=== PATIENT | male | born 1995 | race Caucasian/White ===

== ENCOUNTER 2019-01-28 21:00 | Emergency (ER) | payer SELFPAY ==
--- NOTE | 2019-01-29 00:53 | ER Document Report ---
ED General - General Chief Complaint: Cold Symptoms Stated Complaint: COUGH,SORE THROAT Time Seen by Provider: 01/29/19 00:44 Mode of Arrival: Ambulatory Information source: Patient TRAVEL OUTSIDE OF THE [place] IN LAST 30 DAYS: No - HPI Patient complains to provider of: Productive cough, sore throat Onset: Other - 2 days ago Onset/Duration: Sudden Quality of pain: Sharp Severity: Mild Pain Level: 2 Associated symptoms: denies: Chills, Diarrhea, Fever, Nausea, Vomiting Exacerbated by: Denies Relieved by: Denies Similar symptoms previously: No Recently seen / treated by doctor: No Notes: 23-year-old male coming in today with bad cough, sore throat, producing green-yellow sputum. Afebrile. No nausea vomiting or diarrhea. Past Medical History - General Information source: Patient - Social History Smoking Status: Former Smoker Family History: Reviewed & Not Pertinent Review of Systems - Review of Systems Notes: Constitutional: No fevers. No chills. EENT: No eye redness. No eye pain. No ear pain. No sore throat. Cardiovascular: No chest pain. No palpitations. Respiratory: Positive cough and chest congestion. Positive sputum production Gastrointestinal: No abdominal pain. No nausea, vomiting, or diarrhea. Genitourinary: Atraumatic. No lesions. No pain. No discharge. Musculoskeletal: Atraumatic. No swelling. No deformities. Skin: No rash or lesions. Lymphatic: No swollen lymph nodes. Neurologic: No headache. No syncope. Psychiatric: No suicidal or homicidal ideation. Physical Exam - Vital signs Vitals: Temp Pulse Resp BP Pulse Ox 98.2 F 98 20 131/68 H 98 01/28/19 21:10 01/28/19 21:10 01/28/19 21:10 01/28/19 21:10 01/28/19 21:10 - Notes Notes: General: Well-developed, well-nourished. In no acute distress. Non-toxic appearing. Cardiac: Well-perfused. Regular rate and rhythm. No murmurs, rubs, or gallops. Pulmonary: No respiratory distress. No cyanosis. Bilateral lung fiels are clear to auscultation. Abdominal: Non-distended. Non-rigid. Bowels sounds are present in all four quadrants. No guarding or rebound. HEENT: Head is atraumatic. Conjunctivae not reddened. No tearing. PERRL. EOMI. Orbits atraumatic. No periorbital swelling or erythema. Oropharynx is without erythema, swelling, or exudates. Neck: Supple. No adenopathy. No meningismus. Dermatologic: Warm with good turgor. No rash. Atraumatic. Chest: Atraumatic. No chest wall tenderness to palpation. Musculoskeletal: Moves all extremities well. No range of motion deficits. no muscular or joint tenderness. No paraspinal muscle tenderness. no midline spinal tenderness or step-off. Genitourinary: Examination deferred Neurologic: No gross neurologic deficits. Psychiatric: Normal mood. Course - Vital Signs Vital signs: Temp Pulse Resp BP Pulse Ox 98.2 F 98 20 131/68 H 98 01/28/19 21:10 01/28/19 21:10 01/28/19 21:10 01/28/19 21:10 01/28/19 21:10 Discharge - Discharge Clinical Impression: Upper respiratory infection Qualifiers: URI type: unspecified URI Qualified Code(s): J06.9 - Acute upper respiratory infection, unspecified Condition: Good Disposition: HOME, SELF-CARE Instructions: Upper Respiratory Illness ([facility]) Prescriptions: Benzonatate [Tessalon Perles 100 mg Capsule] 100 mg PO Q8HP PRN #15 capsule PRN Reason: Azithromycin [Zithromax 250 mg Tablet] 250 mg PO ASDIR PRN #6 tablet PRN Reason: Referrals: [facility] [Provider Group] - Follow up as needed
[2019-01-29 00:58] VITALS: BP 140/80
== END 2019-01-29 00:57 | disposition home or self-care (01) ==
LOC: ER 21:00
DX: J06.9 Acute upper respiratory infection, unspecified (principal); R05 Cough; J02.9 Acute pharyngitis, unspecified; R09.89 Other specified symptoms and signs involving the circulatory and respiratory systems; Z87.891 Personal history of nicotine dependence
CPT/HCPCS: 99282

== ENCOUNTER 2019-07-07 15:17 | Emergency (ER) | payer SELFPAY ==
[2019-07-07] MEDS ORDERED: MAG HYDROX/AL HYDROX/SIMETH SUSP 30 ML UDCUP PO ONE (15:32)
[2019-07-07] MEDS ORDERED: LIDOCAINE 2% VISCOUS SOLN 20 ML UDCUP PO ONE (15:32)
--- NOTE | 2019-07-07 15:33 | ER Document Report ---
ED Medical Screen (RME) - General Stated Complaint: STOMACH PAIN Time Seen by Provider: 07/07/19 15:31 Mode of Arrival: Ambulatory Information source: Patient Notes: Patient presents complaining of feeling as though he has discomfort whenever he eats something. Patient states he feels as though food gets caught up at the base of his esophagus and then goes down. Patient denies any cough or difficulty breathing. Patient denies any nausea or vomiting. Patient reports mild discomfort to the epigastric area. I have greeted and performed a rapid initial assessment of this patient. A comprehensive ED assessment and evaluation of the patient, analysis of test results and completion of the medical decision making process will be conducted by additional ED providers. TRAVEL OUTSIDE OF THE [place] IN LAST 30 DAYS: No - Related Data Allergies/Adverse Reactions: No Known Allergies Allergy (Verified 07/07/19 15:30) Past Medical History - Social History Chew tobacco use (# tins/day): No Drug Abuse: None Renal/ Medical History: Denies: Hx Peritoneal Dialysis Physical Exam - Vital signs Vitals: Temp Pulse Resp BP Pulse Ox 98.9 F 101 H 16 144/79 H 97 07/07/19 15:22 07/07/19 15:22 07/07/19 15:22 07/07/19 15:22 07/07/19 15:22 - Abdominal Tenderness: Tender - "Discomfort" in the epigastric area Course - Vital Signs Vital signs: Temp Pulse Resp BP Pulse Ox 98.9 F 101 H 16 144/79 H 97 07/07/19 15:22 07/07/19 15:22 07/07/19 15:22 07/07/19 15:22 07/07/19 15:22
[2019-07-07 16:10] LABS: ABSOLUTE EOSINOPHILS # (AUTO) 0.1 10^3/uL (0.0-0.6); ABSOLUTE LYMPHOCYTES (AUTO) 1.6 10^3/uL (0.5-4.7); ABSOLUTE MONOCYTES (AUTO) 0.8 10^3/uL (0.1-1.4); ABSOLUTE NEUT (AUTO) 7.8 10^3/uL (1.7-8.2); BASOPHILS % (AUTO) 0.4 % (0-2); EOSINOPHILS % (AUTO) 0.9 % (0-6); HEMATOCRIT 45.9 % (37.9-51.0); HEMOGLOBIN 15.5 g/dL (13.5-17.0); LYMPHOCYTES % (AUTO) 15.6 % (13-45); MEAN CORPUSCULAR HEMOGLOBIN 27.8 pg (27.0-33.4); MEAN CORPUSCULAR HGB CONC 33.8 g/dL (32.0-36.0); MEAN CORPUSCULAR VOLUME 82 fl (80-97); MONOCYTES % (AUTO) 7.5 % (3-13); PLATELET COUNT 260 10^3/uL (150-450); RED BLOOD COUNT 5.58 10^6/uL (4.35-5.55); RED CELL DISTRIBUTION WIDTH 12.8 % (11.5-14.0); SEGMENTED NEUTROPHILS % (AUTO) 75.6 % (42-78); TOTAL CELLS COUNTED % (AUTO) 100 %; WHITE BLOOD COUNT 10.3 10^3/uL (4.0-10.5)
[2019-07-07 16:32] LABS: ALBUMIN 4.8 g/dL (3.5-5.0); ALKALINE PHOSPHATASE 71 U/L (38-126); ANION GAP 10 (5-19); ASPARTATE AMINO TRANSFERASE 29 U/L (17-59); BILIRUBIN,DIRECT 0.1 mg/dL (0.0-0.4); BILIRUBIN,TOTAL 0.5 mg/dL (0.2-1.3); BLOOD UREA NITROGEN 12 mg/dL (7-20); CALCIUM 10.6 mg/dL (8.4-10.2); CARBON DIOXIDE 28 mmol/L (22-30); CHLORIDE 100 mmol/L (98-107); GLUCOSE 94 mg/dL (75-110); POTASSIUM 4.3 mmol/L (3.6-5.0); TOTAL PROTEIN 7.8 g/dL (6.3-8.2)
--- NOTE | 2019-07-07 16:46 | ER Document Report ---
HPI - HPI Time Seen by Provider: 07/07/19 15:31 Pain Level: 1 Notes: Patient is an otherwise healthy 23-year-old male presenting to the emergency department with an abnormal sensation in his lower esophagus after eating food or swallowing liquid. He states this is been going on for 4 days. He denies any vomiting, states he is actually able to swallow but it feels like it gets stuck. He denies any history of same. - GASTROINTESTINAL Gastrointestinal: REPORTS: Abdominal Pain - mid epigastric - REPRODUCTIVE Reproductive: DENIES: : Past Medical History - General Information source: Patient - Social History Smoking Status: Never Smoker Chew tobacco use (# tins/day): No Drug Abuse: None Family History: Reviewed & Not Pertinent Patient has suicidal ideation: No Patient has homicidal ideation: No - Medical History Medical History: Negative Renal/ Medical History: Denies: Hx Peritoneal Dialysis Past Surgical History: Reports: Hx Abdominal Surgery - hernia repair Vertical Provider Document - CONSTITUTIONAL Notes: PHYSICAL EXAMINATION: GENERAL: Well-appearing, well-nourished and in no acute distress. HEAD: Atraumatic, normocephalic. EYES: Pupils equal round and reactive to light, extraocular movements intact, sclera anicteric, conjunctiva are normal. ENT: Nares patent, oropharynx clear without exudates. Moist mucous membranes. NECK: Normal range of motion, supple without lymphadenopathy LUNGS: Breath sounds clear to auscultation bilaterally and equal. No wheezes rales or rhonchi. HEART: Regular rate and rhythm without murmurs ABDOMEN: Soft, nontender, nondistended abdomen. No guarding, no rebound. No masses appreciated. Musculoskeletal: Normal range of motion, no pitting or edema. No cyanosis. NEUROLOGICAL: Cranial nerves grossly intact. Normal speech, normal gait. Normal sensory, motor exams PSYCH: Normal mood, normal affect. SKIN: Warm, Dry, normal turgor, no rashes or lesions noted. - INFECTION CONTROL TRAVEL OUTSIDE OF THE [place] IN LAST 30 DAYS: No Course - Re-evaluation Re-evalutation: Patient speaking in full and complete sentences, swallowing without difficulty. Patient reports some relief of pain after administration of medications by triage provider. Chest x-ray was obtained does not show any obvious retained foreign body near the esophagus. Patient encouraged to follow-up with primary care or GI if his symptoms continue. Will start patient on omeprazole. - Vital Signs Vital signs: Temp Pulse Resp BP Pulse Ox 98.9 F 101 H 16 144/79 H 97 07/07/19 15:22 07/07/19 15:22 07/07/19 15:22 07/07/19 15:22 07/07/19 15:22 - Laboratory Result Diagrams: 07/07/19 15:46 07/07/19 15:46 Laboratory results interpreted by me: 07/07/19 07/07/19 15:46 15:46 RBC 5.58 H Calcium 10.6 H Discharge - Discharge Clinical Impression: GERD (gastroesophageal reflux disease) Qualifiers: Esophagitis presence: without esophagitis Qualified Code(s): K21.9 - Gastro-esophageal reflux disease without esophagitis Condition: Stable Disposition: HOME, SELF-CARE Additional Instructions: Reflux Disease (GERD) Gastro-Esophageal Reflux Disease (GERD) is caused by stomach acid refluxing back up into the esophagus. The valve at the end of the esophagus may be weak. This is common in persons with a hiatal hernia. GERD symptoms can include indigestion, chest pain, heartburn, or food "sticking." Certain foods, alcohol, and aspirin can make GERD worse. Treatment depends on the severity. Usually, antacids or acid-suppressing medicines are used. When the esophagus is acutely inflamed, the physician will often prescribe membrane-protective drugs such as Carafate. Some patients benefit from medication such as Reglan that tightens the valve at the top of the stomach. Avoid those foods that bring on your symptoms. For many people, these foods are coffee, chocolate, onions, garlic, and carbonated drinks. Don't use alcohol, aspirin, caffeine, or tobacco. Don't eat late at night -- within 4 hours of bedtime. Don't over-eat. If necessary, elevate the head of your bed about 4 inches so that stomach acid will not roll up into your esophagus. Call the doctor if you develop severe chest pain, inability to swallow fluids, fever, or worsening symptoms. This please start taking the medication I prescribed, you can also purchase this medication [id number] if it is cheaper that way. Please follow-up with your primary care provider if your symptoms persist so they can consider doing what we call a barium swallow study. Please return to the emergency department with any new or worsening symptoms. Prescriptions: Omeprazole 20 mg PO DAILY #30 tablet.
--- NOTE | 2019-07-07 17:13 | RADIOLOGY REPORT (SQ) ---
EXAM DESCRIPTION: CHEST 2 VIEWS COMPLETED DATE/TIME: 07/07/2019 4:59 pm REASON FOR STUDY: abnormal sensation in epigastric area COMPARISON: Chest radiographs 06/12/2009 EXAM PARAMETERS: NUMBER OF VIEWS: two views TECHNIQUE: Digital Frontal and Lateral radiographic views of the chest acquired. RADIATION DOSE: NA LIMITATIONS: none FINDINGS: LUNGS AND PLEURA: No opacities, masses or pneumothorax. No pleural effusion. MEDIASTINUM AND HILAR STRUCTURES: No masses or contour abnormalities. HEART AND VASCULAR STRUCTURES: Heart normal size. No evidence for failure. BONES: No acute findings. HARDWARE: None in the chest. OTHER: No other significant finding. IMPRESSION: NO ACUTE RADIOGRAPHIC FINDING IN THE CHEST. TECHNICAL DOCUMENTATION: JOB ID: [id number] [employer]- All Rights Reserved Reading location - IP/workstation name: [email or web address]
[2019-07-07 18:24] VITALS: BP 131/70
== END 2019-07-07 18:18 | disposition home or self-care (01) ==
LOC: ER 15:17
DX: K21.9 Gastro-esophageal reflux disease without esophagitis (principal); R10.13 Epigastric pain; R13.10 Dysphagia, unspecified
CPT/HCPCS: 99284; 36415; 83690; 85025; 80053; 71046; J3490